=== PATIENT | female | born 1935 | race Caucasian/White ===

== ENCOUNTER 2017-01-30 14:51 | Emergency (ER) | payer MEDICARE, BC ==
[~2017-01-30 14:51] MED LIST: ANEXSIA 5/325 M1 TA1 PO; CITALOPRAM HBR10 MG PO; CITRACAL + D CA1 TA1 PO; CITRACAL PLUS T1 TAB PO; COUMADIN PO; COUMADIN5 MG PO; DARVOCET-N 1001 TAB PO; DICLOFENAC PO; MECLIZINE HCL12.5 M1 PO; PRILOSEC20 M1 PO; TOPROL XL PO; TOPROL XL50 MG PO; VOLTAREN75 MG PO; ZOCOR PO
[2017-01-30] MEDS ORDERED: GABAPENTIN300 M2 PO (14:58)
[2017-01-30] MEDS ORDERED: FUROSEMIDE40 MG PO (14:58)
[2017-01-30] MEDS ORDERED: AMLODIPINE BESY10 MG PO (14:59)
[2017-01-30] MEDS ORDERED: COUMADIN2.5 MG PO (15:01)
== END 2017-01-30 15:59 | disposition home or self-care (01) ==
LOC: SED 14:51
DX: S61.216A Laceration without foreign body of right little finger without damage to nail, initial encounter (principal); W26.9XXA Contact with unspecified sharp object(s), initial encounter; Y92.009 Unspecified place in unspecified non-institutional (private) residence as the place of occurrence of the external cause
CPT/HCPCS: 12001; 99283

== ENCOUNTER 2017-03-01 13:01 | Emergency (ER) | payer MEDICARE, BC ==
--- NOTE | ~2017-03-01 | CR252 ---
[facility]. [facility] A Service of [facility] & [facility] RADIOLOGY TEXT RESULTS PATIENT: ISAURA GREENWOOD LOCATION: SED : 39 UNIT #: [id number] AGE: [address]: SEBASTIAN DUGGAN PA-C SEX: F ORDER DR: [id number] [address] [address] [id number] MR#: [id number] Acc #: [id number] NAME: ISAURA GREENWOOD. : 1935 SEX: F STUDY DATE/TIME: 03/01/2017 14:27 UNIT: SED ROOM: STUDY DESCRIPTION: CR Tibia and Fibula 2 Views Lt Attending Physician: Sebastian Duggan Pa-C Ordering Physician: Sebastian Duggan Pa-C Primary Care Physician: Shamar Hardwick M.D. MEDICAL IMAGING REPORT This report is preliminary unless electronic signature is present. EXAM Left tibia-fibula 2 views INDICATION Pain in leg and ankle today after cutting grass. There are no comparisons. FINDINGS There is soft tissue swelling about the ankle. No fracture or malalignment. IMPRESSION Soft tissue swelling about the ankle, otherwise unremarkable. Dictated by... Oren Robins M.D. THIS IS AN ELECTRONICALLY VERIFIED REPORT Oren Robins M.D. at 03/02/2017 2:22 PM DANAE/genoveva TD: 03/02/2017 05:09 JOB #: [id number] MEDICAL IMAGING REPORT Page 1 of 1
[~2017-03-01 13:01] MED LIST changes: +AMLODIPINE BESY10 MG PO; +COUMADIN2.5 MG PO; +FUROSEMIDE40 MG PO; +GABAPENTIN300 M2 PO
== END 2017-03-01 15:00 | disposition home or self-care (01) ==
LOC: SED 13:01
DX: S93.402A Sprain of unspecified ligament of left ankle, initial encounter (principal); S80.12XA Contusion of left lower leg, initial encounter; Z88.5 Allergy status to narcotic agent; Z88.8 Allergy status to other drugs, medicaments and biological substances; Z90.710 Acquired absence of both cervix and uterus; X50.1XXA Overexertion from prolonged static or awkward postures, initial encounter; Y92.009 Unspecified place in unspecified non-institutional (private) residence as the place of occurrence of the external cause
CPT/HCPCS: 29515; 73590; 99283